=== PATIENT | male | born 1955 | race Two or more races ===

== ENCOUNTER 2016-07-04 19:26 | Emergency (ER) | payer OTHER ==
[2016-07-04 19:32] VITALS: BP 185/82; BMI 47.3
[2016-07-04] MEDS ORDERED: TORADOL 30 MG VIAL IM ONE (21:04)
--- NOTE | 2016-07-04 21:04 | DR.GENAD ---
HPI - PCP Primary Care Physician: FREDERIC - HPI Comment HPI Comment: right neck x 2-3days - Complaint/Symptoms Chief Complaint:: NECK/HEAD HURTS - Source History Provided: Patient - Mode of Arrival Mode of Arrival: Ambulatory - Timing Onset of Chief Complaint: 07/03/16 PMH - PMH Past Medical History: Yes Past Medical History: Coronary Artery Disease, Diabetes, Hypertension Past Surgical History: Yes Surgical History: Angioplasty/Stents, Appendectomy, CABG/Valve Surgery, Cholecystectomy, Tonsillectomy - Family History History of Family Medical Conditions: Yes Family Medical History: Diabetes Mellitus, Cancer - Social History Does patient currently use any type of tobacco product: No Have you used tobacco products in the last 12 months: No Type of Tobacco Use: None Does any household member use tobacco: No Alcohol Use: None Do you use any recreational Drugs:: No Lives With: Spouse Lives Where: Home - infectious screening In the last 2 months have you had wt loss of >10#?: NO Have you had fever, night sweats or hemotysis?: No Have you traveled outside the country in the last 6 months?: No Isolation: Standard PE - Vital Signs Vitals: Temperature 98.5 F Pulse Rate 83 Respiratory Rate 17 Blood Pressure [Right Arm] 145/95 Blood Pressure 185/82 O2 Sat by Pulse Oximetry 98 - Diagnosis Discharge Problem: Cervicalgia - Discharge Plan Disposition: HOME, SELF-CARE Condition: Stable Prescriptions: Hydrocodone-Ibuprofen [Vicoprofen 7.5-200 mg] 1 tab PO TID PRN #14 tab PRN Reason: Pain - Follow ups/Referrals Follow ups/Referrals: FREDERIC,None [Primary Care Provider] - 3 days - Instructions Instructions: Cervical Sprain, [id number]
[2016-07-04] MEDS ORDERED: TORADOL 30 MG VIAL ONE (21:07)
== END 2016-07-04 21:30 | disposition home or self-care (01) ==
LOC: ER 19:26
DX: M54.2 Cervicalgia (principal)
CPT/HCPCS: 96372; 99281; 99282; J1885

== ENCOUNTER → 2016-07-09 | Outpatient (CLI) | payer OTHER ==
[2016-07-04 19:32] VITALS: BP 185/82
[2016-07-09 11:55] LABS: BASOPHILS # (AUTO) 0.1 X10^3/uL (0.0-0.1); BASOPHILS % (AUTO) 1.2 % (0.2-1.0); EOSINOPHILS # (AUTO) 0.3 x10^3/uL (0.0-0.2); EOSINOPHILS % (AUTO) 3.7 % (0.9-2.9); HEMOGLOBIN 12.9 g/dL (13.5-18.0); LYMPHOCYTES # (AUTO) 1.7 X10^3/uL (1.3-2.9); LYMPHOCYTES % (AUTO) 20.7 % (21.0-51.0); MEAN CORPUSCULAR HEMOGLOBIN 27.9 pg (27.0-34.0); MEAN CORPUSCULAR HGB CONC 33.9 g/dL (33.0-35.0); MEAN CORPUSCULAR VOLUME 82.3 fL (80.0-100.0); MEAN PLATELET VOLUME 7.8 fL (7.4-11.0); MONOCYTES # (AUTO) 0.4 x10^3/uL (0.3-0.8); MONOCYTES % (AUTO) 4.8 % (0.0-13.0); NEUTROPHILS # (AUTO) 5.7 x10^3/uL (2.2-4.8); NEUTROPHILS % (AUTO) 69.6 % (42.0-75.0); PLATELET COUNT 248 X10^3/uL (150.0-450.0); RED BLOOD COUNT 4.62 X10^6/uL (4.7-6.0); RED CELL DISTRIBUTION WIDTH 14.5 % (11.6-16.5); WHITE BLOOD COUNT 8.2 X10^3/uL (3.6-10.0)
[2016-07-09 11:58] LABS: CREATININE,URINE 112.22 mg/dL (40-278); MICROALBUMIN,URINE 19.5 mg/L
[2016-07-09 12:05] LABS: ALANINE AMINOTRANSFERASE 21 Units/L (12-78); ALBUMIN 3.5 g/dL (3.4-5.0); ALKALINE PHOSPHATASE 82 Units/L (46-116); ASPARTATE AMINO TRANSFERASE 17 Units/L (15-37); BLOOD UREA NITROGEN 16 mg/dL (7-18); CALCIUM 8.4 mg/dL (8.5-10.1); CARBON DIOXIDE 30.6 mmol/L (21-32); CHLORIDE 101 mmol/L (98-107); CHOL/HDL RATIO 4.5 (0.0-5.0); CHOLESTEROL 130 mg/dL (0-200); COR NA(FOR HYPERGLY) 138 mmol/L (136-145); CREATININE 1.06 mg/dL (0.70-1.30); GLUCOSE 135 mg/dL (65-99); HDL CHOLESTEROL 29 mg/dL (40-60); SODIUM 137 mmol/L (136-145); TOTAL PROTEIN 7.9 g/dL (6.4-8.2); TRIGLYCERIDES 183 mg/dL (0-150); eGFR BLACK RACES > 60 (>60); eGFR NON BLACK RACES > 60 (>60)
== END ==
LOC: LAB 11:28
PROVIDERS: ATTEND Nurse Practitioner Family
DX: I10 Essential (primary) hypertension (principal); E78.00 Pure hypercholesterolemia, unspecified; E11.9 Type 2 diabetes mellitus without complications
CPT/HCPCS: 36415; 80053; 80061; 82043; 83036; 85025

== ENCOUNTER → 2016-09-08 | Outpatient (CLI) | payer OTHER | LOC: RT 10:19 | PROVIDERS: ATTEND Psychiatry & Neurology Neurology | DX: E88.89 Other specified metabolic disorders (principal) | CPT/HCPCS: 95910 ==

== ENCOUNTER → 2016-09-20 | Outpatient (CLI) | payer OTHER | LOC: RAD 07:55 | PROVIDERS: ATTEND Internal Medicine Cardiovascular Disease | DX: R06.09 Other forms of dyspnea (principal) | CPT/HCPCS: 78452; 93017; A9502 ==

== ENCOUNTER → 2016-11-18 | Outpatient (CLI) | payer OTHER ==
[2016-11-18 11:03] LABS: BASOPHILS # (AUTO) 0.1 X10^3/uL (0.0-0.1); BASOPHILS % (AUTO) 0.8 % (0.2-1.0); EOSINOPHILS # (AUTO) 0.3 x10^3/uL (0.0-0.2); EOSINOPHILS % (AUTO) 2.5 % (0.9-2.9); HEMATOCRIT 35.1 % (42.0-54.0); LYMPHOCYTES # (AUTO) 1.7 X10^3/uL (1.3-2.9); LYMPHOCYTES % (AUTO) 16.1 % (21.0-51.0); MEAN CORPUSCULAR HEMOGLOBIN 28.7 pg (27.0-34.0); MEAN CORPUSCULAR HGB CONC 34.3 g/dL (33.0-35.0); MEAN CORPUSCULAR VOLUME 83.7 fL (80.0-100.0); MEAN PLATELET VOLUME 7.9 fL (7.4-11.0); MONOCYTES # (AUTO) 0.6 x10^3/uL (0.3-0.8); MONOCYTES % (AUTO) 5.3 % (0.0-13.0); NEUTROPHILS % (AUTO) 75.3 % (42.0-75.0); PLATELET COUNT 252 X10^3/uL (150.0-450.0); RED CELL DISTRIBUTION WIDTH 13.5 % (11.6-16.5); WHITE BLOOD COUNT 10.6 X10^3/uL (3.6-10.0)
[2016-11-18 11:20] LABS: ALANINE AMINOTRANSFERASE 29 Units/L (12-78); ALBUMIN 3.5 g/dL (3.4-5.0); ALKALINE PHOSPHATASE 82 Units/L (46-116); ASPARTATE AMINO TRANSFERASE 19 Units/L (15-37); BLOOD UREA NITROGEN 23 mg/dL (7-18); CALCIUM 8.4 mg/dL (8.5-10.1); CARBON DIOXIDE 25.8 mmol/L (21-32); CHLORIDE 108 mmol/L (98-107); CHOL/HDL RATIO 3.7 (0.0-5.0); CHOLESTEROL 110 mg/dL (0-200); COR NA(FOR HYPERGLY) 142 mmol/L (136-145); GLUCOSE 134 mg/dL (65-99); HDL CHOLESTEROL 30 mg/dL (40-60); SODIUM 141 mmol/L (136-145); TOTAL PROTEIN 7.7 g/dL (6.4-8.2); TRIGLYCERIDES 256 mg/dL (0-150); eGFR BLACK RACES 57 (>60); eGFR NON BLACK RACES 47 (>60)
[2016-11-18 11:22] LABS: CREATININE,URINE 167.46 mg/dL (40-278); MICROALBUMIN,URINE 11.8 mg/L
[2016-11-18 11:45] LABS: HEMOGLOBIN A1C 7.5 % (4.5-6.2)
== END ==
LOC: LAB 10:39
PROVIDERS: ATTEND Nurse Practitioner Family
DX: I10 Essential (primary) hypertension (principal); E11.9 Type 2 diabetes mellitus without complications
CPT/HCPCS: 36415; 80053; 80061; 82043; 83036; 85025

== ENCOUNTER → 2017-02-11 | Outpatient (CLI) | payer OTHER ==
--- NOTE | 2017-02-11 16:01 | MRI ---
STUDY: MRI OF THE BRAIN WITHOUT GADOLINIUM History: Dizziness. Comparison: Head CT from November 09, 2013. Technique: Multiplanar multi-sequence MRI of the brain was obtained utilizing standard departmental p rotocol. Sagittal and axial T1, axial T2, FLAIR, diffusion (DWI/ADC) images through the brain were pe rformed. Findings: The sulci, cisterns, and ventricles are age appropriate. There is no evidence of acute terr itorial infarction, hemorrhage, mass, mass effect or midline shift. There are no abnormal intra-axial or extra-axial fluid collections. The major intracranial vascular flow voids are intact. IMPRESSION: 1. No evidence of acute intracranial abnormality. Reported By:
== END ==
LOC: RAD 14:55
PROVIDERS: ATTEND Nurse Practitioner Family
DX: R42 Dizziness and giddiness (principal)
CPT/HCPCS: 70551